=== PATIENT | male | born 1990 | race Two or more races ===

== ENCOUNTER 2020-11-04 11:26 | Inpatient (IN) | payer MEDICAID ==
[~2020-11-04] VITALS: Ht 157.5 cm; Wt 77.2 kg
[2020-11-04] MEDS ORDERED: PANTOPRAZOLE 40 MG/10 ML VIAL INJ IV STA (11:31)
[2020-11-04] MEDS ORDERED: LORazepam 2MG/ML-1ML VIAL IV ONE (11:45)
[2020-11-04] MEDS ORDERED: PROCHLORPERAZINE EDISYLATE 5 MG/ML 2ML VIAL IV ONE (11:45)
[2020-11-04] MEDS ORDERED: SODIUM CHLORIDE 0.9% 1,000 ML IVB ONE (11:45)
[2020-11-04 11:55] LABS: Nucleated Red Blood Cells % 0.1 %
[2020-11-04 11:56] LABS: Basophils # (auto) 0 10 ^3/uL (0-0.2); Eosinophils # (auto) 0 10 ^3/uL (0-0.8); Hemoglobin 9.6 g/dL (13.5-17.5); Lymphocytes # (auto) 1.2 10 ^3/uL (0.4-5.4); Monocytes # (auto) 0.6 10 ^3/uL (0-1.3); Neutrophils # (auto) 3.8 10 ^3/uL (1.6-8.6)
[2020-11-04 11:59] LABS: Basophils % (auto) 0.6 % (0.0-2.0); Eosinophils % (auto) 0.3 % (0.0-7.0); Hematocrit 26.8 % (41.0-53.0); Lymphocytes % (auto) 21.9 % (10.0-50.0); Mean Corpuscular Hemoglobin 34.8 pg (28.0-32.0); Mean Corpuscular Hgb Conc. 35.7 g/dL (32.0-36.0); Mean Corpuscular Volume 97.5 fL (80.0-100.0); Monocytes % (auto) 10.7 % (0.0-12.0); Neutrophils % (auto) 66.5 % (37.0-80.0); Red Blood Cells 2.75 10^6/uL (4.5-5.90); Red Cell Distribution Width 12.4 % (11.8-14.3); White Blood Cell 5.7 10^3/uL (4.4-10.8)
[2020-11-04 12:13] LABS: Albumin 3.7 g/dL (3.4-5.0); Calcium 9.2 mg/dL (8.5-10.1)
[2020-11-04 12:16] LABS: BUN/Creatinine Ratio 16.3; Bilirubin, Total 1.7 mg/dL (0.2-1.0); Total Protein 7.6 g/dL (6.4-8.2)
[2020-11-04 12:41] LABS: Potassium 2.8 mmol/L (3.5-5.1)
[2020-11-04] MEDS ORDERED: POTASSIUM CHL 20MEQ/100ML 100 ML IV ONE (13:00)
[2020-11-04] MEDS ORDERED: PANTOPRAZOLE 40 MG/10 ML VIAL INJ IV ONE (13:30)
[2020-11-04] MEDS ORDERED: SODIUM CHLORIDE 0.9% 1,000 ML IV ONE (13:30)
[2020-11-04] MEDS ORDERED: NITROGLYCERIN 0.4 MG SL TAB SL PRN ×2 (13:30→14:45)
[2020-11-04] MEDS ORDERED: MORPHINE SULFATE INJECTION 2 MG/ML SYRG IV PRN ×3 (13:30→14:45)
[2020-11-04] MEDS: SODIUM CHLORIDE 0.9% 1,000 ML IV SCH (14:45)
[2020-11-04] MEDS ORDERED: ALUM & MAG HYDROX-SIMETH LIQ(MAALOX) 30 ML PO PRN (14:45)
[2020-11-04] MEDS ORDERED: metroNIDAZOLE 500MG/100ML 100 ML IV ONE (14:45)
[2020-11-04] MEDS ORDERED: HYDROcodone-ACET 5/325MG TAB PO PRN (14:45)
[2020-11-04] MEDS ORDERED: ACETAMINOPHEN 325 MG TAB PO PRN (14:45)
[2020-11-04] MEDS ORDERED: SUCRALFATE 1 GM TAB PO ONE (14:45)
[2020-11-04] MEDS ORDERED: ONDANSETRON HCL 4 MG/2 ML VIAL IV PRN (14:45)
[2020-11-04] MEDS ORDERED: cefTRIAXone 1GM/50ML D5W 50 ML IV ONE (14:45)
[2020-11-04] MEDS ORDERED: LORazepam 2MG/ML-1ML VIAL IV PRN (14:45)
[2020-11-04] MEDS ORDERED: LORazepam 0.5 MG TAB PO PRN (14:45)
[2020-11-04] MEDS ORDERED: DEXTROSE (50%) 50ML SYRG IV PRN (15:45)
[2020-11-04 15:46] LABS: Cholesterol 179 mg/dL (< 200)
[2020-11-04 15:50] LABS: HDL Cholesterol 35 mg/dL (40-59); LDL Cholesterol 127 mg/dL (< 100); Triglycerides 197 mg/dL (< 150)
[2020-11-04] MEDS: SUCRALFATE 1 GM TAB PO SCH ×2 (16:54→22:03)
[2020-11-04] MEDS: ACCU-CHEK COMFORT CURVE STRIP VI SCH ×2 (16:54→21:58)
[2020-11-04] MEDS: InsuLIN REG 1unit/0.01ml Soln (100units/ml) SC SCH ×2 (16:55→21:58)
[2020-11-04] MEDS: SOD CHL 0.9%/ KCL 40MEQ 1,000 ML IV SCH (17:07)
[2020-11-04 19:30] LABS: Urine Bacteria NONE SEEN /hpf (None Seen); Urine Blood Negative /uL (Negative); Urine Specific Gravity 1.013 (1.001-1.035); Urine WBC 1 /hpf (0 - 3)
[2020-11-04 19:49] LABS: Alcohol, Urine < 3.0 mg/dL (0-10); Amphetamine Screen, Urine NEGATIVE (NEGATIVE); Barbiturate Scree,Urine NEGATIVE (NEGATIVE); Benzodiazephine Screen, Urine NEGATIVE (NEGATIVE); Cannabinoid Screen, Urine NEGATIVE (NEGATIVE); Cocaine Screen, Urine NEGATIVE (NEGATIVE); Opiate Scree,Urine NEGATIVE (NEGATIVE); Phencyclidine Screen, Urine NEGATIVE (NEGATIVE)
[2020-11-04] MEDS: PANTOPRAZOLE 40 MG/10 ML VIAL INJ IV SCH (22:03)
[2020-11-04] MEDS: metroNIDAZOLE 500MG/100ML 100 ML IV SCH (22:03)
[2020-11-05] MEDS: SOD CHL 0.9%/ KCL 40MEQ 1,000 ML IV SCH ×4 (00:14→22:50)
[2020-11-05] MEDS: metroNIDAZOLE 500MG/100ML 100 ML IV SCH ×3 (06:30→21:11)
[2020-11-05] MEDS: ACCU-CHEK COMFORT CURVE STRIP VI SCH ×2 (06:54→11:30)
[2020-11-05] MEDS: InsuLIN REG 1unit/0.01ml Soln (100units/ml) SC SCH ×2 (06:54→11:30)
[2020-11-05] MEDS: SUCRALFATE 1 GM TAB PO SCH ×4 (06:54→21:04)
[2020-11-05] MEDS: SODIUM CHLORIDE 0.9% 1,000 ML IV SCH (07:25)
[2020-11-05] MEDS ORDERED: INFLUENZA QUAD 2020-2021 0.5 ML SYRG IM ONE (08:00)
[2020-11-05 08:41] VITALS: BP 125/85
[2020-11-05 09:07] LABS: Albumin 2.9 g/dL (3.4-5.0); Calcium 7.9 mg/dL (8.5-10.1); INR 1.11 (0.9-1.15); Potassium 3.4 mmol/L (3.5-5.1)
[2020-11-05 09:11] LABS: BUN/Creatinine Ratio 11.8; Bilirubin, Total 0.9 mg/dL (0.2-1.0); Total Protein 5.9 g/dL (6.4-8.2)
[2020-11-05] MEDS: PANTOPRAZOLE 40 MG/10 ML VIAL INJ IV SCH (09:31)
[2020-11-05] MEDS: cefTRIAXone 1GM/50ML D5W 50 ML IV SCH (09:31)
[2020-11-05] MEDS ORDERED: POLYETHYLENE GLYCOL 17 GM PWDR PO ONE (12:45)
[2020-11-05] MEDS ORDERED: POTASSIUM CHL 20 Meq TABLET PO ONE (12:45)
[2020-11-05] MEDS ORDERED: FOLIC ACID 1 MG, MAGNESIUM SULF SDV 50% 8 MEQ, THIAMINE INJ 100 MG in SODIUM CHLORIDE 0... INJ SCH (12:45)
[2020-11-05 12:57] LABS: Basophils # (auto) 0 10 ^3/uL (0-0.2); Eosinophils # (auto) 0 10 ^3/uL (0-0.8); Eosinophils % (auto) 0.8 % (0.0-7.0); Hematocrit 21.1 % (41.0-53.0); Hemoglobin 7.3 g/dL (13.5-17.5); Lymphocytes # (auto) 0.9 10 ^3/uL (0.4-5.4); Monocytes # (auto) 0.4 10 ^3/uL (0-1.3); Monocytes % (auto) 10.5 % (0.0-12.0); Neutrophils # (auto) 2.3 10 ^3/uL (1.6-8.6); Neutrophils % (auto) 62.8 % (37.0-80.0)
[2020-11-05 12:59] LABS: Lymphocytes % (auto) 24.9 % (10.0-50.0); Mean Corpuscular Hemoglobin 34.9 pg (28.0-32.0); Mean Corpuscular Hgb Conc. 34.6 g/dL (32.0-36.0); Mean Corpuscular Volume 101.1 fL (80.0-100.0); Nucleated Red Blood Cells % 0.1 %; Red Blood Cells 2.09 10^6/uL (4.5-5.90); Red Cell Distribution Width 12.4 % (11.8-14.3); White Blood Cell 3.6 10^3/uL (4.4-10.8)
[2020-11-05 13:00] VITALS: BP 123/79
[2020-11-05] MEDS ORDERED: FOLIC ACID 1 MG TAB PO ONE (13:45)
[2020-11-05] MEDS ORDERED: MULTIPLE VITAMIN TAB PO ONE (13:45)
[2020-11-05] MEDS ORDERED: THIAMINE HCL 100 MG TAB PO ONE (13:45)
[2020-11-05 16:48] VITALS: BP 136/87
[2020-11-05] MEDS: PANTOPRAZOLE 40 MG TAB PO SCH (21:04)
[2020-11-05 22:00] VITALS: BP 126/76
[2020-11-06 05:00] VITALS: BP 135/73
[2020-11-06] MEDS: metroNIDAZOLE 500MG/100ML 100 ML IV SCH ×2 (05:25→14:00)
[2020-11-06] MEDS: SUCRALFATE 1 GM TAB PO SCH ×2 (06:31→11:30)
[2020-11-06] MEDS: SOD CHL 0.9%/ KCL 40MEQ 1,000 ML IV SCH (06:51)
[2020-11-06 07:17] LABS: Basophils # (auto) 0.1 10 ^3/uL (0-0.2); Basophils % (auto) 1.3 % (0.0-2.0); Eosinophils # (auto) 0.1 10 ^3/uL (0-0.8); Lymphocytes # (auto) 1.6 10 ^3/uL (0.4-5.4)
[2020-11-06 07:21] LABS: Eosinophils % (auto) 1.5 % (0.0-7.0); Hematocrit 23.3 % (41.0-53.0); Hemoglobin 8.2 g/dL (13.5-17.5); Lymphocytes % (auto) 33.5 % (10.0-50.0); Mean Corpuscular Hemoglobin 35.6 pg (28.0-32.0); Mean Corpuscular Hgb Conc. 35.3 g/dL (32.0-36.0); Mean Corpuscular Volume 100.8 fL (80.0-100.0); Monocytes # (auto) 0.5 10 ^3/uL (0-1.3); Monocytes % (auto) 11.2 % (0.0-12.0); Neutrophils # (auto) 2.6 10 ^3/uL (1.6-8.6); Neutrophils % (auto) 52.5 % (37.0-80.0); Nucleated Red Blood Cells % 0.2 %; Red Blood Cells 2.31 10^6/uL (4.5-5.90); Red Cell Distribution Width 12.5 % (11.8-14.3); White Blood Cell 4.9 10^3/uL (4.4-10.8)
[2020-11-06 07:26] LABS: Albumin 3.3 g/dL (3.4-5.0); BUN/Creatinine Ratio 6.6; Calcium 8.8 mg/dL (8.5-10.1); Magnesium 2.1 mg/dL (1.6-2.6); Potassium 3.9 mmol/L (3.5-5.1)
[2020-11-06 07:29] LABS: Bilirubin, Total 0.7 mg/dL (0.2-1.0); Total Protein 6.7 g/dL (6.4-8.2)
[2020-11-06 09:31] LABS: % Iron Saturation 19.2 % (20-55)
[2020-11-06] MEDS ORDERED: THIAMINE HCL 100 MG TAB PO SCH ×2 (10:00)
[2020-11-06] MEDS ORDERED: FOLIC ACID 1 MG TAB PO SCH (10:00)
[2020-11-06] MEDS ORDERED: MULTIPLE VITAMIN TAB PO SCH (10:00)
[2020-11-06] MEDS: cefTRIAXone 1GM/50ML D5W 50 ML IV SCH (10:22)
[2020-11-06] MEDS: PANTOPRAZOLE 40 MG TAB PO SCH (10:23)
[2020-11-06 13:27] VITALS: BP 133/89
[2020-11-07 11:17] LABS: Hepatitis B Surface Antibody Negative
[2020-11-07 11:19] LABS: Folate (Folic Acid) 15.27 ng/mL (5.38-24)
[2020-11-07 11:44] LABS: Hepatitis A Total Antibody Positive
[2020-11-07 13:11] LABS: Hepatitis B Core Total AB Negative; Hepatitis B Surface Antigen Negative (Negative); Hepatitis C Antibody Negative (Negative)
== END 2020-11-06 15:00 | disposition home or self-care (01) | DRG 241 ==
LOC: ER 11:26 → TELE 11:27 → TELE-WESTW 11-05 06:14
PROVIDERS: ADMIT Hospitalist; ATTEND Hospitalist
DX: K29.21 Alcoholic gastritis with bleeding (principal); B17.9 Acute viral hepatitis, unspecified; E11.9 Type 2 diabetes mellitus without complications; K52.9 Noninfective gastroenteritis and colitis, unspecified; Z20.822 Contact with and (suspected) exposure to COVID-19; E66.9 Obesity, unspecified; E78.5 Hyperlipidemia, unspecified; E87.1 Hypo-osmolality and hyponatremia; F10.10 Alcohol abuse, uncomplicated; S05.90XA Unspecified injury of unspecified eye and orbit, initial encounter; X58.XXXA Exposure to other specified factors, initial encounter; D64.9 Anemia, unspecified; Y90.9 Presence of alcohol in blood, level not specified; F12.90 Cannabis use, unspecified, uncomplicated; Z83.3 Family history of diabetes mellitus; Y93.89 Activity, other specified; Y92.89 Other specified places as the place of occurrence of the external cause; Y99.8 Other external cause status; Z79.899 Other long term (current) drug therapy; Z68.31 Body mass index [BMI] 31.0-31.9, adult; Z28.21 Immunization not carried out because of patient refusal; D62 Acute posthemorrhagic anemia
CPT/HCPCS: 36415; 74176; 80053; 80061; 80307; 81001; 82150; 82270; 82607; 82728; 82746; 82962; 83036; 83540; 83550; 83615; 83690; 83735; 84484; 85025; 85045; 85610; 86704; 86706; 86708; 86803; 87040; 87086; 87340; 87426; 93005; 96361; 96374; 96375; C9113; G0378; J0696; J3480; J3490

== ENCOUNTER 2022-02-22 16:56 | Emergency (ER) | payer MEDICAID ==
[~2022-02-22] VITALS: Ht 157.5 cm; Wt 72.6 kg
[2022-02-22] MEDS ORDERED: FLUORESCEIN SOD OPTH TEST STRIP EACHEYE ONE (18:30)
[2022-02-22] MEDS ORDERED: TETRACAINE HCL 0.5% OPTH(EYE) SOLN 4ML EACHEYE ONE (18:30)
[2022-02-22] MEDS ORDERED: CIP03OS EACHEYE (19:47)
[2022-02-22 20:14] VITALS: BP 145/98
== END 2022-02-22 21:01 | disposition home or self-care (01) ==
LOC: ER 16:56
DX: S05.02XA Injury of conjunctiva and corneal abrasion without foreign body, left eye, initial encounter (principal); S05.01XA Injury of conjunctiva and corneal abrasion without foreign body, right eye, initial encounter; E11.9 Type 2 diabetes mellitus without complications; X58.XXXA Exposure to other specified factors, initial encounter; Y93.89 Activity, other specified; Y92.89 Other specified places as the place of occurrence of the external cause; Y99.8 Other external cause status

== ENCOUNTER 2022-05-06 08:57 | Emergency (ER) | payer MEDICAID ==
[~2022-05-06] VITALS: Ht 160 cm; Wt 72.7 kg
[~2022-05-06 08:57] MED LIST: CIP03OS EACHEYE
[2022-05-06] MEDS ORDERED: ACETAMINOPHEN 500 MG TAB PO ONE (09:30)
[2022-05-06] MEDS ORDERED: IBUP800T26 PO (12:04)
[2022-05-06] MEDS ORDERED: CYCL-837 PO (12:04)
[2022-05-06 12:05] VITALS: BP 165/99
== END 2022-05-06 12:19 | disposition home or self-care (01) ==
LOC: ER 08:57
DX: S43.421A Sprain of right rotator cuff capsule, initial encounter (principal); E11.9 Type 2 diabetes mellitus without complications; Z79.2 Long term (current) use of antibiotics; X50.1XXA Overexertion from prolonged static or awkward postures, initial encounter; Y93.89 Activity, other specified; Y92.89 Other specified places as the place of occurrence of the external cause; Y99.8 Other external cause status
CPT/HCPCS: 29105; 73030

== ENCOUNTER 2023-05-19 20:36 | Emergency (ER) | payer MEDICAID ==
[~2023-05-19] VITALS: Ht 167.6 cm; Wt 73.0 kg
[2023-05-19 20:36] VITALS: BP 151/95; PULSE 102; RESP 18; O2SAT 95
[~2023-05-19 20:36] MED LIST changes: +CYCL-837 PO; +IBUP-1455 PO
[2023-05-19 21:37] LABS: Urine Bacteria FEW /hpf (None Seen); Urine Blood Negative /uL (Negative); Urine Clarity Clear (Clear); Urine Color Yellow (Yellow); Urine Hyaline Cast FEW /lpf (0 - 2); Urine Mucus FEW (None Seen); Urine Protein, UAD 3+ (Negative); Urine Specific Gravity 1.014 (1.001-1.035); Urine Urobilinogen Normal (Negative); Urine WBC 2 /hpf (0 - 3); Urine pH 6.5 (5.0-8.0)
[2023-05-19 23:16] LABS: Basophils # (auto) 0.1 10 ^3/uL (0-0.2); Basophils % (auto) 1.2 % (0.0-2.0); Eosinophils # (auto) 0.1 10 ^3/uL (0-0.8); Eosinophils % (auto) 1.1 % (0.0-7.0); Hematocrit 34.8 % (41.0-53.0); Hemoglobin 11.6 g/dL (13.5-17.5); Lymphocytes # (auto) 1.9 10 ^3/uL (0.4-5.4); Lymphocytes % (auto) 22.3 % (10.0-50.0); Mean Corpuscular Hemoglobin 31.3 pg (28.0-32.0); Mean Corpuscular Hgb Conc. 33.4 g/dL (32.0-36.0); Mean Corpuscular Volume 93.7 fL (80.0-100.0); Monocytes % (auto) 12.2 % (0.0-12.0); Neutrophils # (auto) 5.3 10 ^3/uL (1.6-8.6); Neutrophils % (auto) 63.2 % (37.0-80.0); Nucleated Red Blood Cells % 0.1 %; Red Blood Cells 3.71 10^6/uL (4.5-5.90); Red Cell Distribution Width 14.9 % (11.8-14.3); White Blood Cell 8.4 10^3/uL (4.4-10.8)
[2023-05-19 23:25] LABS: INR 1.11 (0.9-1.15); Partial Thromboplastin Time 31.1 SEC (24.5-34.5); Prothrombin Time 11.6 sec (9.3-11.8)
[2023-05-19 23:34] LABS: Alanine Aminotransferase 61 U/L (7-40); Albumin 4.4 g/dL (3.2-4.8); Alkaline Phosphatase 158 U/L (46-116); Anion Gap 13.2 (5-15); Aspartate Aminotransferase 255 U/L (13-40); BUN/Creatinine Ratio 7.9 (10.0-20.0); Bilirubin, Total 1.3 mg/dL (0.2-1.0); Blood Urea Nitrogen 5 mg/dL (9-23); Calcium 9.1 mg/dL (8.5-10.1); Carbon Dioxide 21.8 mmol/L (20-30); Chloride 104 mmol/L (98-107); Glucose 105 mg/dL (74-106); Potassium 3.6 mmol/L (3.5-5.1); Sodium 139 mmol/L (136-145); Total Protein 8.7 g/dL (5.7-8.2)
== END 2023-05-19 22:46 | disposition left against medical advice (07) ==
LOC: ER 20:37
DX: R06.02 Shortness of breath (principal); R07.89 Other chest pain; Z53.21 Procedure and treatment not carried out due to patient leaving prior to being seen by health care provider
CPT/HCPCS: 36415; 71045; 80053; 81001; 83735; 83880; 84484; 85025; 85610; 85730

== ENCOUNTER 2024-04-18 13:35 | Emergency (ER) | payer MEDICAID ==
[~2024-04-18] VITALS: Ht 157.5 cm; Wt 72.0 kg
[2024-04-18 14:15] VITALS: BP 118/73; PULSE 111; RESP 18; TEMP 98.8; O2SAT 95
== END 2024-04-18 15:35 | disposition left against medical advice (07) ==
LOC: ER 13:35
DX: S61.511A Laceration without foreign body of right wrist, initial encounter (principal); Z53.21 Procedure and treatment not carried out due to patient leaving prior to being seen by health care provider; W45.8XXA Other foreign body or object entering through skin, initial encounter; Y93.89 Activity, other specified; Y92.89 Other specified places as the place of occurrence of the external cause; Y99.8 Other external cause status

== ENCOUNTER 2024-09-15 02:43 | Emergency (ER) | payer MEDICAID ==
[~2024-09-15] VITALS: Ht 157.5 cm; Wt 71.7 kg
[2024-09-15 02:55] VITALS: BP 161/107; PULSE 124; RESP 18; O2SAT 97
== END 2024-09-15 04:23 | disposition left against medical advice (07) ==
LOC: ER 02:43
DX: R10.9 Unspecified abdominal pain (principal); Z53.21 Procedure and treatment not carried out due to patient leaving prior to being seen by health care provider

== ENCOUNTER 2025-06-21 10:12 | Inpatient (IN) | payer MEDICAID ==
[2025-06-21] VITALS (9 sets, daily range): BP systolic 118–133; BP diastolic 55–84; PULSE 81–124; RESP 15–19; TEMP 98.7–99.3; O2SAT 97–98
[~2025-06-21] VITALS: Ht 157.5 cm; Wt 77.4 kg
[2025-06-21] MEDS: PANTOPRAZOLE 40mg/50ML NS AE 50 ML IV ONE ×2 (10:45→12:43)
[2025-06-21] MEDS: SODIUM CHLORIDE 0.9% 500 ML IV ONE (10:45)
--- NOTE | 2025-06-21 10:45 | ED.PDOC ---
GI ASSESSMENT HPI Comments 35 year old male PMHx liver disease, HTN, DM, anemia, presents to the ED with a chief complaint of hematemesis onset last night around 22:00. Patient states he began experiencing hematemesis last night as well as low back pain, this morning hematemesis worsened, is also experiencing weakness, lightheadedness, states he experienced a few syncopal episodes. Patient had a beer this morning, states he experienced similar episode in 2019, not as severe. Denies fever, chills, chest pain, shortness of breath, dysuria, hematuria, melena, blood in stool. No other symptoms or modifying factors present at this time. Chief Complaint: GI Bleed Time Seen by MD: 10:40 Primary Care Provider: QUIQUE PMD Reviewed Notes: Medications, Allergies Allergies: Coded Allergies: No Known Drug Allergy (Verified Allergy, Unknown, 11/04/20) Home Meds Active Scripts Ibuprofen Micronized (Ibuprofen) 800 Mg Tab, 800 MG PO TID PRN, #60 TAB Prov:COTY JAQUEZ CRAYON PAINTER 05/06/22 Cyclobenzaprine Hcl (Cyclobenzaprine Hcl) 5 Mg Tab, 1 TAB PO TID PRN, #30 TAB Prov:COTY JAQUEZ CRAYON PAINTER 05/06/22 Ciprofloxacin Hcl (Ophth) (Cipro Opthalmic Soln) [address], 1 DROP EACHEYE QID for 7 Days, #10 ML Prov:DILIA MUSTAFA DO 02/22/22 Information Source: Patient, Spouse Mode of Arrival: Wheelchair Timing: Hours Duration: Since onset Prehospital treatment: None Vomitus: Bloody Severity: Moderate Recent: Ingestion of ETOH Recent Hx of: None Pain Location: None Modifying Factors: Nothing Associated sign and symptoms: Nausea, Vomiting, Hematemesis Past Medical History PAST MEDICAL HISTORY: Anemia, DM, HTN, Liver Surgical History: Denies all surgeries Family History Family History: Family hx of DM, Family hx of HTN Social History Smoker: Cigarettes Alcohol: Heavy Drugs: Marijuana Lives In: Home Constitutional: reports: weakness; denies: chills, diaphoresis, fatigue, fever, malaise, sweats, others EENTM: denies: blurred vision, double vision, ear bleeding, ear discharge, ear drainage, ear pain, ear ringing, eye pain, eye redness, hearing loss, mouth pain, mouth swelling, nasal discharge, nose bleeding, nose congestion, nose pain, photophobia, tearing, throat pain, throat swelling, voice changes, others Respiratory: denies: cough, hemoptysis, orthopnea, SOB at rest, shortness of breath, SOB with excertion, stridor, wheezing, others Cardiovascular: denies: chest pain, dizzy spells, diaphoresis, Dyspnea on exertion, edema, irregular heart beat, left arm pain, lightheadedness, palpitations, PND, syncope, others Gastrointestinal: reports: hematemesis, nausea, vomiting; denies: abdomen dis tended, abdominal pain, blood streaked bowels, constipated, diarrhea, dysphagia, difficulty swallowing, melena, poor appetite, poor fluid intake, rectal bleeding, rectal pain, others Genitourinary: denies: burning, dysuria, flank pain, frequency, hematuria, incontinence, penile discharge, penile sore, pain, testicle pain, testicle swelling, urgency, others Neurological: reports: dizziness, fainting, weakness; denies: headache, left sided numbness, left sided weakness, numbness, paresthesia, pre-existing deficit, right sided numbness, right sided weakness, seizure, speech problems, tingling, tremors, others Musculoskeletal: reports: back pain; denies: gout, joint pain, joint swelling, muscle pain, muscle stiffness, neck pain, others Integumetry: denies: bruises, change in color, change in hair/nails, dryness, laceration, lesions, lumps, rash, wounds, others Allergic/Immunocompromised: denies: Difficulty Healing, Frequent Infections, Hives, Itching, others Hematologic/Lymphatic: denies: anemia, blood clots, easy bleeding, easy bruising, swollen glands, others Endocrine: denies: excessive hunger, excessive sweating, excessive thirst, excessive urination, flushing, intolerance to cold, intolerance to heat, unexplained weight gain, unexplained weight loss, others Psychiatric: denies: anxiety, bipolar disorder, depression, hopeless, panic disorder, schizophrenia, sleepless, suicidal, others All Other Systems: Reviewed and Negative Physical Exam General Appearance: Moderate Distress HEENT: Pale Conjuntivae (L), Pale Conjuntivae (R), Pharynx Normal, TMs Normal Neck: Full Range of Motion, Non-Tender, Normal, Normal Inspection Respiratory: Chest Non-Tender, Lungs Clear, No Accessory Muscle Use, No Respiratory Distress, Normal Breath Sounds Cardiovascular: No Edema, No JVD, No Murmur, No Gallop, Normal Peripheral Pulses, Regular Rate/Rhythm Breast Exam: Deferred Gastrointestinal: Diffuse, No Organomegaly, No Pulsatile Mass, Normal Bowel Sounds, Soft, Tenderness Genitalia: Deferred Pelvic: Deferred Rectal: Deferred Extremities: No calf tenderness, Normal capillary refill, Normal inspection, Normal range of motion, Non-tender, No pedal edema Musculoskeletal : Apperance: Normal Neurologic: Alert, stage rigger II-XII nml as Tested, Motor Weakness, Normal Affect, Normal Mood, No Sensory Deficits Cerebellar Function: Normal Reflexes: Normal Skin: Dry, Normal Color, Warm Lymphatic: No Adenopathy Was a procedure done? Was a procedure done?: No GI differential Dx Differential Diagnosis: Diverticular disease, Gastritis/PUD, Gastroenteritis, Pancreatitis, UTI, Electrolyte Imbalance, Food Poisoning X-Ray, Labs, Meds, VS Vital Signs Date Time Temp Pulse Resp B/P (MAP) Pulse Ox O2 Delivery O2 Flow Rate FiO2 06/21/25 12:13 135 20 111/79 (90) 100 06/21/25 10:20 98.4 129 18 124/73 99 98.4 Lab Test 06/21/25 11:15 Range/Units White Blood Count 6.4 4.4-10.8 10^3/uL Red Blood Count 2.25 L 4.5-5.90 10^6/uL Hemoglobin 6.8 *L 13.5-17.5 g/dL Hematocrit 20.7 L 41.0-53.0 % Mean Corpuscular Volume 91.9 80.0-100.0 fL Mean Corpuscular Hemoglobin 30.1 28.0-32.0 pg Mean Corpuscular Hemoglobin Concent 32.7 32.0-36.0 g/dL Red Cell Distribution Width 16.9 H 11.8-14.3 % Platelet Count 137 L 140-450 10^3/uL Mean Platelet Volume 9.6 6.9-10.8 fL Neutrophils (%) (Auto) 83.4 H 37.0-80.0 % Lymphocytes (%) (Auto) 10.6 10.0-50.0 % Monocytes (%) (Auto) 5.7 0.0-12.0 % Eosinophils (%) (Auto) 0.0 0.0-7.0 % Basophils (%) (Auto) 0.3 0.0-2.0 % Neutrophils # (Auto) 5.4 1.6-8.6 10 ^3/uL Lymphocytes # (Auto) 0.7 0.4-5.4 10 ^3/uL Monocytes # (Auto) 0.4 0-1.3 10 ^3/uL Eosinophils # (Auto) 0 0-0.8 10 ^3/uL Basophils # (Auto) 0 0-0.2 10 ^3/uL Nucleated Red Blood Cells 0.0 % Prothrombin Time 14.9 H 9.3-11.8 sec Prothrombin Time INR 1.46 H 0.9-1.15 Activated Partial Thromboplast Time 26.8 24.5-34.5 SEC Sodium Level 139 136-145 mmol/L Potassium Level 3.4 L 3.5-5.1 mmol/L Chloride Level 98 98-107 mmol/L Carbon Dioxide Level 22 20-31 mmol/L Anion Gap 19 H 5-15 Blood Urea Nitrogen 18 9-23 mg/dL Creatinine 0.59 L 0.700-1.30 mg/dL Glomerular Filtration Rate Calc 128 >90 mL/min BUN/Creatinine Ratio 30.5 H 10.0-20.0 Serum Glucose 174 H 74-106 mg/dL Calcium Level 8.0 L 8.7-10.4 mg/dL Total Bilirubin 2.1 H 0.2-1.0 mg/dL Aspartate Amino Transferase (AST) 118 H 13-40 U/L Alanine Aminotransferase (ALT) 49 H 7-40 U/L Alkaline Phosphatase 128 H 46-116 U/L Total Protein 6.2 5.7-8.2 g/dL Albumin 3.1 L 3.2-4.8 g/dL Plasma/Serum Blood Alcohol 8.3 <10 mg/dL Current Medications Medications (Trade) Dose Ordered Sig/Lidia Route Start Time Stop Time Status Last Admin Sodium Chloride 500 ml @ 500 mls/hr Q1H ONCE IV 06/21/25 10:45 06/21/25 11:44 DC 06/21/25 10:45 Pantoprazole Sodium 50 ml @ 10 mls/hr Q5H ONCE IV 06/21/25 10:45 06/21/25 15:44 06/21/25 10:45 PROCEDURE(s): ABPL - CT AB PEL WO CON-NO ORAL OR IV IMPRESSION: Limited evaluation without contrast. Cirrhotic morphology liver with extensive hypodense lesions throughout the hepatic parenchyma replacing more than 50% of the hepatic parenchyma. This could be secondary to malignancy /metastatic disease. Recommend oncology consultation and multiphasic MRI abdomen with and without contrast. Gastroesophageal varices. Wall thickening of the ascending and transverse colon which can be secondary to portal hypertension, colitis, inflammatory bowel disease. Gallbladder wall thickening and hyperdensity, possibly sludge. Recommend abdominal ultrasound to further characterize and HIDA scan to exclude cholecystitis. Other findings as described. Hep-Lock was established Patient was given normal saline at a 500 cc bolus. Because of the active bleeding, the patient was started on a Protonix drip. The CBC shows a hemoglobin of 6.8 hematocrit of 20.7 The chemistry panel is within normal limits The INR is 1.46 At this time, the patient will be admitted to the hospitalist The patient is being transfused with at least 2 units of packed red blood cells. We are discussing the fact that the patient may have signs of malignancy which could be metastatic. Images Reviewed?: Images reviewed and evaluated by me Time of 1ST Reevaluation: 11:10 Reevaluation 1ST: Unchanged Patient Education/Counseling: Diagnosis, Treatment, Prognosis Family Education/Counseling: Diagnosis, Treatment, Prognosis SEPSIS Sepsis Screen Date sepsis recognized/suspect: Jun 21, 2025 Time Sepsis recognized/suspect: 1023 Recent Procedure: No On Antibiotic Therapy: No Respiratory Rate >20: No Heart Rate >90: Yes Temp<36 C (96.8 F) or >38.3 C: No SBP <90 or MAP <65 mmHG: No New Acute Mental Status Change: No Is the patient on CPAP, BIPAP,: No Physician Orders Urinalysis (06/21/25 10:40) Heplock Iv (06/21/25 10:40) Lacquer Maker (06/21/25 10:40) Blood Pressure (06/21/25 10:40) Pulse Oximetry (06/21/25 10:40) Electrocardigram (06/21/25 10:40) Type And Screen (06/21/25 10:40) Pantoprazole 40mg/50ml Ns Ae (Protonix) (06/21/25 10:45) Ct Ab Pel Wo Con-No Oral Or Iv (06/21/25 10:40) Obtain Consent For: (06/21/25 12:34) Administer Blood Products UD (06/21/25 12:34) Pantoprazole (Protonix) (06/21/25 22:00) * Gi Dvh Leisure Studies Professor (06/21/25 13:21) Glucose Blood (Accu-Chek Comfort Curve T (06/21/25 16:00) Insulin R (Human) (Insulin R) (06/21/25 16:00) Dextrose 50% Syringe (06/21/25 13:30) Allergies (06/21/25 13:) Code Status (06/21/25:) Sodium Chloride 0.9% (06/21/25 13:30) Oxygen Per Hour (06/21/25 13:21) Hydrocodone-Acet 5/325mg Tab ([place] 5/32 (06/21/25 13:30) Ondansetron Hcl (Zofran) (06/21/25 13:30) Docusate Sodium Capsule (Colace Capsule) (06/21/25 13:30) Complete Blood Count (06/22/25 04:00) Comprehensive Metabolic Panel (06/22/25 04:00) Condition: Serious (06/21/25 13:) Acetaminophen Tablet (Tylenol Tablet) (06/21/25 13:30) Bedrest With Bathroom Privileg (06/21/25 13:) Maintain Bed Rest (06/21/25 13:) Sequential Compression Device (06/21/25 ) Consistent Carb(Ccho)Diabetes (06/21/25 Lunch) Admit (06/21/25 14:17) Nitroglycerin Sublingual (Ntrostat Subli (06/21/25 14:30) Morphine Sulfate Injection (06/21/25 14:30) Stat Ekg For Chest Pain (06/21/25 14:17) Notify Of Changes From Base (06/21/25 14:17) Old Coin Dealer For 24 Hours (06/21/25 14:17) Emergency Dysrhythmia Protocol (06/21/25 14:17) Rhythm Strips Once Every Shift (06/21/25 14:17) Oxygen By Nasal Cannula (06/21/25 14:17) Vital Signs Date Time Temp Pulse Resp B/P (MAP) Pulse Ox O2 Delivery O2 Flow Rate FiO2 06/21/25 12:13 135 20 111/79 (90) 100 06/21/25 10:20 98.4 129 18 124/73 99 98.4 Laboratory Tests Test 06/21/25 11:15 White Blood Count 6.4 10^3/uL (4.4-10.8) Medications Medications Dose Ordered Sig/Lidia Route Start Time Stop Time Status Last Admin Dose Admin Pantoprazole Sodium 50 ml @ 10 mls/hr Q5H ONCE IV 06/21/25 10:45 06/21/25 15:44 06/21/25 10:45 Sodium Chloride 500 ml @ 500 mls/hr Q1H ONCE IV 06/21/25 10:45 06/21/25 11:44 DC 06/21/25 10:45 Departure 1 Departure Time of Disposition: 14:22 Impression: Primary Impression: Upper GI bleed Additional Impressions: Acute abdominal pain Severe anemia Disposition: ADMITTED INPATIENT Admit to: [facility] Condition: Fair Critical Care Note Critical Care Time?: No Stability Stability form required: No Heart Score Heart Score: Heart Score Response (Comments) Value History N/A 0 EKG N/A 0 Age N/A 0 Risk Factors N/A 0 Troponin N/A 0 Total 0 I personally scribed for CRESENCIO POTTER MD ([email or web address]) on 06/21/25 at 10:44. Electronically submitted by Lola Duran ([email or web address]). I personally scribed for CRESENCIO POTTER MD ([email or web address]) on 06/21/25 at 12:14. Electronically submitted by Lola Duran [email or web address]). CRESENCIO POTTER MD Jun 21, 2025 10:44
[2025-06-21 11:33] LABS: Nucleated Red Blood Cells % 0.0 %
[2025-06-21 11:35] LABS: Hematocrit 20.7 % (41.0-53.0); Mean Corpuscular Hemoglobin 30.1 pg (28.0-32.0); Mean Corpuscular Volume 91.9 fL (80.0-100.0)
[2025-06-21 11:46] LABS: Hemoglobin 6.8 g/dL (13.5-17.5)
[2025-06-21 11:49] LABS: INR 1.46 (0.9-1.15); Partial Thromboplastin Time 26.8 SEC (24.5-34.5); Prothrombin Time 14.9 sec (9.3-11.8)
[2025-06-21 11:50] LABS: Anion Gap 19 (5-15); BUN/Creatinine Ratio 30.5 (10.0-20.0); Blood Urea Nitrogen 18 mg/dL (9-23); Carbon Dioxide 22 mmol/L (20-31); Sodium 139 mmol/L (136-145); Total Protein 6.2 g/dL (5.7-8.2)
[2025-06-21 11:56] LABS: Alanine Aminotransferase 49 U/L (7-40); Albumin 3.1 g/dL (3.2-4.8); Alkaline Phosphatase 128 U/L (46-116); Bilirubin, Total 2.1 mg/dL (0.2-1.0); Calcium 8.0 mg/dL (8.7-10.4); Chloride 98 mmol/L (98-107); Glucose 174 mg/dL (74-106); Potassium 3.4 mmol/L (3.5-5.1)
--- NOTE | 2025-06-21 12:03 | DVH ---
Indication: weakness Technique: CT axial images of the abdomen and pelvis are obtained without contrast. Coronal and sagit luis reformats were obtained. Radiation Dose Information: CTDI volume is 8.1 mGy. Dose-length product is 441 mGy*cm Comparison: CT ABD PELVIS WO CONTRAST on DOS: 11/04/20 FINDINGS: There is limited interpretation of the abdomen and pelvis without administration of intravenous contr ast. Lung bases demonstrate no pleural effusion. Adrenal glands, spleen and pancreas unremarkable in shape. Numerous perisplenic varices. Cirrhotic morphology liver. There are innumerable hypodense lesions throughout the hepatic parenchyma highly suspicious for malignancy /metastatic disease. This replaces more than 50% of the hepatic par enchyma. Gallbladder hyperdensity, gallbladder wall thickening. The kidneys demonstrate no hydronephrosis or nephrolithiasis. Gastroesophageal varices. Gastric distention. Small bowel loops normal in caliber. Recanalized umbil ical vein. Moderate volume stool throughout the colon. Normal appendix. Bowel wall thickening ascending and dong sverse colon. Abdominal aortic atherosclerotic disease. Bladder partially distended. No free pelvic fluid. No ingui nal lymphadenopathy. IMPRESSION: Limited evaluation without contrast. Cirrhotic morphology liver with extensive hypodense lesions throughout the hepatic parenchyma replaci ng more than 50% of the hepatic parenchyma. This could be secondary to malignancy /metastatic disease . Recommend oncology consultation and multiphasic MRI abdomen with and without contrast. Gastroesophageal varices. Wall thickening of the ascending and transverse colon which can be secondary to portal hypertension, colitis, inflammatory bowel disease. Gallbladder wall thickening and hyperdensity, possibly sludge. Recommend abdominal ultrasound to fur ther characterize and HIDA scan to exclude cholecystitis. Other findings as described.
[2025-06-21] MEDS ORDERED: DEXTROSE (50%) 50ML SYRG IV PRN (13:30)
[2025-06-21] MEDS: SODIUM CHLORIDE 0.9% 1,000 ML IV SCH (13:30)
[2025-06-21] MEDS ORDERED: DOCUSATE SOD 100 MG CAP PO PRN (13:30)
[2025-06-21] MEDS ORDERED: HYDROcodone-ACET 5/325MG TAB PO PRN (13:30)
--- NOTE | 2025-06-21 14:19 | DVHHP2 ---
History of Present Illness Reason for Visit: Severe anemia History of Present Illness The patient is a 35 year male with past medical history of anemia, diabetes mellitus, hypertension, and liver disease who presented to [facility] ED with complaint of hematemesis. Patient reports that he has been experiencing hematemesis last night as well as low back pain, lightheadedness, weakness, few syncopal episodes, getting worse this morning that prompted this visit. Patient was seen and evaluated in the ED, laboratory data shows WBC 6.4, hemoglobin 6.8, hematocrit 20.7, platelets 137, sodium 139, potassium 3.4, BUN 18, creatinine 0.59, GFR 128, glucose 174, calcium 8.0, albumin 3.1, total bilirubin 2.1, alkaline phos 128, AST 118, ALT 49, PT 14.9, INR 1.46, APTT 26.8, blood pressure 114/79, heart rate 135, temperature 98.4, O2 saturation 99% on room air. Abdomen/pelvis CT revealing cirrhotic morphology liver with extensive hypodense lesions throughout the hepatic parenchyma replacing more than 50% of the hepatic parenchyma; this could be secondary to malignancy/metastatic d isease; wall thickening of the ascending and transverse colon which can be secondary to portal hypertension, colitis, inflammatory bowel disease, gallbladder wall thickening and hyperdensity, possibly sludge; recommend abdominal ultrasound to further characterize and HIDA scan to exclude cholecystitis. Type and screen 2 units PRBC, please see medication orders section in the computer. On my assessment, patient denied chest pain, no headache, dizziness, diaphoresis, shortness a breath, diarrhea, nausea, vomi ting, fever, chills. Patient was admitted for further evaluation and medical management. Past Medical History Anemia, DM, HTN, Liver disease Past Surgical History Denies all surgeries Family History Reviewed, noncontributory to the management of this case. Past Social History The patient lives at home, smokes cigarettes, drinks alcohol heavily, uses marijuana. Review of Systems Constitutional: Yes: Weakness; No: Fever, Chills, Sweats, Malaise, Other Eyes: No: Pain, Vision change, Conjunctivae inflammation, Eyelid inflammation, Other, Redness ENT: No: Ear pain, Ear discharge, Nose pain, Nose discharge, Nose congestion, Mouth pain, Mouth swelling, Throat pain, Throat swelling, Other Respiratory: No: Cough, Dry, Shortness of breath, SOB with excertion, Wheezing, Hemoptysis, Pleuritic Pain, Sputum, Wheezing, Other Cardiovascular: Other (Syncope); No: Chest Pain, Palpitations, Orthopnea, Paroxysmal Noc. Dyspnea, Edema, Lt Headedness Gastrointestinal: Nausea, Vomiting, Other (Hematemesis); No: Abdominal Pain, Diarrhea, Constipation, Melena, Hematochezia Genitourinary: No Dysuria, No Frequency, No Incontinence, No Hematuria, No Retention, No Other Musculoskeletal: back pain; No: other, neck pain, shoulder pain, arm pain, hand pain, leg pain, foot pain Skin: No: Rash, Lesions, Jaundice, Bruising, Other Neurological: Weakness, Other (Dizziness, fainting.); No: Numbness, Incoord ination, Change in speech, Confusion, Seizures Allergies: Coded Allergies: No Known Drug Allergy (Verified Allergy, Unknown, 11/04/20) Medications Current Medications Medications Dose Ordered Sig/Lidia Route Start Time Stop Time Status Last Admin Dose Admin Pantoprazole Sodium 40 mg BID IV 06/21/25 22:00 UNV Diagnostic Test (Pha) 1 strip IQ4HR 06/21/25 16:00 UNV Insulin Human Regular IQ4HR SC 06/21/25 16:00 UNV Dextrose 50 ml UD PRN IV 06/21/25 13:30 UNV Sodium Chloride 1,000 ml @ 60 mls/hr [id number] IV 06/21/25 13:30 UNV Acetaminophen/ Hydrocodone Bitart 1 tab Q4HP PRN PO 06/21/25 13:30 UNV Ondansetron HCl 4 mg Q4HP PRN IV 06/21/25 13:30 UNV Docusate Sodium 100 mg BIDPRN PRN PO 06/21/25 13:30 UNV Acetaminophen 650 mg Q6HP PRN PO 06/21/25 13:30 UNV Exam Vital Signs Vital Signs Date Time Temp Pulse Resp B/P (MAP) Pulse Ox O2 Delivery O2 Flow Rate FiO2 06/21/25 12:13 135 20 111/79 (90) 100 06/21/25 10:20 98.4 98.4 General Appearance: Alert, Oriented X3, Cooperative, No acute distress HEENT: Atraumatic, PERRLA, EOMI, Mucous membr. moist/pink Respiratory: Clear to auscultation, Normal air movement Cardiovascular: Regular rate, Normal S1, Normal S2, No murmurs Abdominal: Normal bowel sounds, Soft, No tenderness, No hepatospenomegaly, No m asses Extremities: No clubbing, No cyanosis, No edema, Normal pulses, No tenderness/swelling Skin: No rashes, No breakdown, No significant lesion Neuro: Normal speech, Normal tone, Sensation intact, Cranial nerves 3-12 NL, Reflexes 2+, Other (Weakness) Psych/Mental Status: Mental status NL, Mood NL Labs/Xrays Labs Test 06/21/25 11:15 Range/Units White Blood Count 6.4 4.4-10.8 10^3/uL Red Blood Count 2.25 L 4.5-5.90 10^6/uL Hemoglobin 6.8 *L 13.5-17.5 g/dL Hematocrit 20.7 L 41.0-53.0 % Mean Corpuscular Volume 91.9 80.0-100.0 fL Mean Corpuscular Hemoglobin 30.1 28.0-32.0 pg Mean Corpuscular Hemoglobin Concent 32.7 32.0-36.0 g/dL Red Cell Distribution Width 16.9 H 11.8-14.3 % Platelet Count 137 L 140-450 10^3/uL Mean Platelet Volume 9.6 6.9-10.8 fL Neutrophils (%) (Auto) 83.4 H 37.0-80.0 % Lymphocytes (%) (Auto) 10.6 10.0-50.0 % Monocytes (%) (Auto) 5.7 0.0-12.0 % Eosinophils (%) (Auto) 0.0 0.0-7.0 % Basophils (%) (Auto) 0.3 0.0-2.0 % Neutrophils # (Auto) 5.4 1.6-8.6 10 ^3/uL Lymphocytes # (Auto) 0.7 0.4-5.4 10 ^3/uL Monocytes # (Auto) 0.4 0-1.3 10 ^3/uL Eosinophils # (Auto) 0 0-0.8 10 ^3/uL Basophils # (Auto) 0 0-0.2 10 ^3/uL Nucleated Red Blood Cells 0.0 % Prothrombin Time 14.9 H 9.3-11.8 sec Prothrombin Time INR 1.46 H 0.9-1.15 Activated Partial Thromboplast Time 26.8 24.5-34.5 SEC Sodium Level 139 136-145 mmol/L Potassium Level 3.4 L 3.5-5.1 mmol/L Chloride Level 98 98-107 mmol/L Carbon Dioxide Level 22 20-31 mmol/L Anion Gap 19 H 5-15 Blood Urea Nitrogen 18 9-23 mg/dL Creatinine 0.59 L 0.700-1.30 mg/dL Glomerular Filtration Rate Calc 128 >90 mL/min BUN/Creatinine Ratio 30.5 H 10.0-20.0 Serum Glucose 174 H 74-106 mg/dL Calcium Level 8.0 L 8.7-10.4 mg/dL Total Bilirubin 2.1 H 0.2-1.0 mg/dL Aspartate Amino Transferase (AST) 118 H 13-40 U/L Alanine Aminotransferase (ALT) 49 H 7-40 U/L Alkaline Phosphatase 128 H 46-116 U/L Total Protein 6.2 5.7-8.2 g/dL Albumin 3.1 L 3.2-4.8 g/dL Plasma/Serum Blood Alcohol 8.3 <10 mg/dL PATIENT: ASHA SAPP ACCT: [id number] UNIT: [id number] : 1990 LOC: ER ROOM / BED: / AGE / SEX: 35 / M ADM STATUS: REG ER SERVICE 1040 ORDERING PHYSICIAN: CRESENCIO POTTER MD PROCEDURE(s): ABPL - CT AB PEL WO CON-NO ORAL OR IV REASON: weakness ORDER NUMBER(s): [id number], ACCESSION NUMBER(s): [id number] Indication: weakness Technique: CT axial images of the abdomen and pelvis are obtained without contrast. Coronal and sagittal reformats were obtained. Radiation Dose Information: CTDI volume is 8.1 mGy. Dose-length product is 441 mGy*cm Comparison: CT ABD PELVIS WO CONTRAST on DOS: 11/04/20 FINDINGS: There is limited interpretation of the abdomen and pelvis without administration of intravenous contrast. Lung bases demonstrate no pleural effusion. Adrenal glands, spleen and pancreas unremarkable in shape. Numerous perisplenic varices. Cirrhotic morphology liver. There are innumerable hypodense lesions throughout the hepatic parenchyma highly suspicious for malignancy/metastatic disease. This replaces more than 50% of the hepatic parenchyma. Gallbladder hyperdensity, gallbladder wall thickening. The kidneys demonstrate no hydronephrosis or nephrolithiasis. Gastroesophageal varices. Gastric distention. Small bowel loops normal in caliber. Recanalized umbilical vein. Moderate volume stool throughout the colon. Normal appendix. Bowel wall thickening ascending and transverse colon. Abdominal aortic atherosclerotic disease. Bladder partially distended. No free pelvic fluid. No inguinal lymphadenopathy. IMPRESSION: Limited evaluation without contrast. Cirrhotic morphology liver with extensive hypodense lesions throughout the hepatic parenchyma replacing more than 50% of the hepatic parenchyma. This could be secondary to malignancy/metastatic disease. Recommend oncology consultation and multiphasic MRI abdomen with and without contrast. Gastroesophageal varices. Wall thickening of the ascending and transverse colon which can be secondary to portal hypertension, colitis, inflammatory bowel disease. Gallbladder wall thickening and hyperdensity, possibly sludge. Recommend abdominal ultrasound to further characterize and HIDA scan to exclude cholecystitis. Other findings as described. SEPSIS Sepsis Screen Date sepsis recognized/suspect: Jun 21, 2025 Time Sepsis recognized/suspect: 1023 Recent Procedure: No On Antibiotic Therapy: No Respiratory Rate >20: No Heart Rate >90: Yes Temp<36 C (96.8 F) or >38.3 C: No SBP <90 or MAP <65 mmHG: No New Acute Mental Status Change: No Is the patient on CPAP, BIPAP,: No Physician Orders Urinalysis (06/21/25 10:40) Heplock Iv (06/21/25 10:40) Purification Supervisor (06/21/25 10:40) Blood Pressure (06/21/25 10:40) Pulse Oximetry (06/21/25 10:40) Electrocardigram (06/21/25 10:40) Type And Screen (06/21/25 10:40) Pantoprazole 40mg/50ml Ns Ae (Protonix) (06/21/25 10:45) Ct Ab Pel Wo Con-No Oral Or Iv (06/21/25 10:40) Obtain Consent For: (06/21/25 12:34) Administer Blood Products UD (06/21/25 12:34) Pantoprazole (Protonix) (06/21/25 22:00) * Gi Dvh Botanical Technical Officer (06/21/25 13:21) Glucose Blood (Accu-Chek Comfort Curve T (06/21/25 16:00) Insulin R (Human) (Insulin R) (06/21/25 16:00) Dextrose 50% Syringe (06/21/25:30) Allergies (06/21/25:) Code Status (06/21/25 13:) Sodium Chloride 0.9% (06/21/25 13:30) Oxygen Per Hour (06/21/25 13:21) Hydrocodone-Acet 5/325mg Tab (Humphreys 5/32 (06/21/25 13:30) Ondansetron Hcl (Zofran) (06/21/25 13:30) Docusate Sodium Capsule (Colace Capsule) (06/21/25 13:30) Complete Blood Count (06/22/25 04:00) Comprehensive Metabolic Panel (06/22/25 04:00) Condition: Serious (06/21/25 13:) Acetaminophen Tablet (Tylenol Tablet) (06/21/25 13:30) Bedrest With Bathroom Privileg (06/21/25:) Maintain Bed Rest (06/21/25:) Sequential Compression Device (06/21/25 ) Consistent Carb(Ccho)Diabetes (06/21/25 Lunch) Admit (06/21/25 14:17) Nitroglycerin Sublingual (Ntrostat Subli (06/21/25 14:30) Morphine Sulfate Injection (06/21/25 14:30) Stat Ekg For Chest Pain (06/21/25 14:17) Notify Of Changes From Base (06/21/25 14:17) Apparatus Engineering Technologist For 24 Hours (06/21/25 14:17) Emergency Dysrhythmia Protocol (06/21/25 14:17) Rhythm Strips Once Every Shift (06/21/25 14:17) Oxygen By Nasal Cannula (06/21/25 14:17) Vital Signs Date Time Temp Pulse Resp B/P (MAP) Pulse Ox O2 Delivery O2 Flow Rate FiO2 06/21/25 12:13 135 20 111/79 (90) 100 06/21/25 10:20 98.4 129 18 124/73 99 98.4 Laboratory Tests Test 06/21/25 11:15 White Blood Count 6.4 10^3/uL (4.4-10.8) Medications Medications Dose Ordered Sig/Lidia Route Start Time Stop Time Status Last Admin Dose Admin Pantoprazole Sodium 50 ml @ 10 mls/hr Q5H ONCE IV 06/21/25 10:45 06/21/25 15:44 06/21/25 10:45 10 MLS/HR Sodium Chloride 500 ml @ 500 mls/hr Q1H ONCE IV 06/21/25 10:45 06/21/25 11:44 DC 06/21/25 10:45 500 MLS/HR Assessment/Plan Assessment/Plan Severe anemia Upper GI bleed Elevated liver enzymes Electrolyte imbalance Acute abdominal pain Generalized weakness Plan 1. Admit to telemetry unit 2. Breathing treatment 3. Pain control management 4. Management of fluids and electrolytes 5. Consultation for hospitalist 6. Diagnostic tests abdomen/pelvis CT 7. DVT prophylaxis-on SCDs 8. Repeat labs CBC, CMP in a.m. 9. Continue with current medical management 10. Treatment plan discussed with patient and RN. Patient verbalized understanding. Plan discussed with: Patient, Other (RN) My Orders Orders - VENANCIO HANNAH DNP Procedure Category Date Status Time Pantoprazole PHA 06/21/25 Logged (Protonix) 22:00 * Gi Dvh Botanical Technical Officer CONS 06/21/25 Transmitted 13:21 Glucose Blood PHA 06/21/25 Logged (Accu-Chek Comfort 16:00 Insulin R (Human) PHA 06/21/25 Logged (Insulin R) 16:00 Dextrose 50% Syringe PHA 06/21/25 Logged 13:30 Allergies LAKISHA 06/21/25 In Process 13:21 Code Status CODE 06/21/25 Transmitted 13:21 Sodium Chloride 0.9% PHA 06/21/25 Logged 13:30 Oxygen Per Hour RT 06/21/25 Transmitted 13:21 Hydrocodone-Acet PHA 06/21/25 Logged 5/325mg Tab (Humphreys 13:30 Ondansetron Hcl PHA 06/21/25 Logged (Zofran) 13:30 Docusate Sodium PHA 06/21/25 Logged Capsule (Colace 13:30 Complete Blood Count LAB 06/22/25 Verified 04:00 Comprehensive LAB 06/22/25 Verified Metabolic Panel 04:00 Condition: Serious LAKISHA 06/21/25 In Process 13:21 Acetaminophen Tablet PHA 06/21/25 Logged (Tylenol Tablet) 13:30 Bedrest With Bathroom [facility] 06/21/25 In Process Privileg 13:21 Maintain Bed Rest [facility] 06/21/25 In Process 13:21 Sequential [facility] 06/21/25 In Process Compression Device Consistent DIET 06/21/25 Transmitted Carb(Ccho)Diabetes Lunch Admit ADMIT 06/21/25 Transmitted 14:17 Nitroglycerin [facility] 06/21/25 Transmitted Sublingual (Ntrostat 14:30 Morphine Sulfate PHA 06/21/25 Transmitted Injection 14:30 Stat Ekg For Chest [facility] 06/21/25 In Process Pain 14:17 Notify Md Of Changes [facility] 06/21/25 In Process From Base 14:17 Apparatus Engineering Technologist For [facility] 06/21/25 In Process 24 Hours 14:17 Emergency Dysrhythmia [facility] 06/21/25 In Process Protocol 14:17 Rhythm Strips Once [facility] 06/21/25 In Process Every Shift 14:17 Oxygen By Nasal RT 06/21/25 Transmitted Cannula 14:17 Problem List: (1) Severe anemia (2) Upper GI bleed (3) Elevated liver enzymes (4) Electrolyte imbalance (5) Acute abdominal pain (6) Generalized weakness Date of Service: Jun 21, 2025 Billing Provider: VENANCIO HANNAH DNP Common Visit Codes: [id number] INP/OBS CARE (HIGH) VENANCIO HANNAH DNP Jun 21, 2025 14:19
[2025-06-21] MEDS ORDERED: MORPHINE SULFATE INJ 2 MG/ml SYRG IV PRN (14:30)
[2025-06-21] MEDS ORDERED: NITROGLYCERIN 0.4 MG SL TAB SL PRN (14:30)
[2025-06-21] MEDS: InsuLIN REG 1unit/0.01ml Soln (100units/ml) SC SCH (16:00)
[2025-06-21] MEDS: ACCU-CHEK COMFORT CURVE STRIP VI SCH (16:17)
[2025-06-21] MEDS: ACETAMINOPHEN 325 MG TAB PO PRN (18:25)
[2025-06-21] MEDS ORDERED: LORazepam 2MG/ML-1ML VIAL IV PRN (18:45)
--- NOTE | 2025-06-21 21:02 | DVH ---
INDICATION: Abdominal pain TECHNIQUE: Multiple real-time sonographic images were obtained of the right upper quadrant. COMPARISON: CT ABD PELVIS WO CONTRAST on DOS: 11/04/20 FINDINGS: Liver is enlarged measuring 17.8 cm with surface nodularity and Moderate diffuse fatty infiltration. Small nonspecific hypoechoic nodule in the left lobe measuring 1.1 cm. There is no intrahepatic or extrahepatic ductal dilatation. The common duct measures 0.4 cm. Mobile gallstone at the body of the gallbladder. Mild pericholecystic edema. Borderline gallbladder distention. Sonographic cohen's sign is negative. The right kidney measures 12.0 cm. The right kidney is normal in contour, size, and shape. The echoge nicity is normal. There is no hydronephrosis. The pancreas is not well visualized due to overlying bowel gas. IMPRESSION: Enlarged heterogeneous liver likely representing cirrhosis with moderate hepatic steatosis. Indeterminate tiny liver lesion. Suggest elective/ nonemergent liver protocol MRI for further charac terization. Gallstone with pericholecystic fluid and borderline gallbladder distention. No other findings to sugg est acute cholecystitis at this time. Close clinical follow-up recommended.
[2025-06-21] MEDS: PANTOPRAZOLE 40 MG/10 ML VIAL INJ IV SCH (21:19)
[2025-06-22] MEDS: ONDANSETRON HCL 4 MG/2 ML VIAL IV PRN (00:10)
[2025-06-22 04:39] LABS: Hematocrit 22.5 % (41.0-53.0); Hemoglobin 7.7 g/dL (13.5-17.5); Mean Corpuscular Hemoglobin 29.4 pg (28.0-32.0); Mean Corpuscular Volume 85.6 fL (80.0-100.0); Nucleated Red Blood Cells % 0.0 %
[2025-06-22 04:57] LABS: Alkaline Phosphatase 91 U/L (46-116); Anion Gap 10 (5-15); BUN/Creatinine Ratio 24.1 (10.0-20.0); Blood Urea Nitrogen 14 mg/dL (9-23); Carbon Dioxide 28 mmol/L (20-31); Chloride 100 mmol/L (98-107); Glucose 96 mg/dL (74-106); Sodium 138 mmol/L (136-145)
[2025-06-22 05:04] LABS: Alanine Aminotransferase 47 U/L (7-40); Albumin 2.6 g/dL (3.2-4.8); Bilirubin, Total 1.8 mg/dL (0.2-1.0); Calcium 7.5 mg/dL (8.7-10.4); Potassium 3.3 mmol/L (3.5-5.1); Total Protein 5.3 g/dL (5.7-8.2)
--- NOTE | 2025-06-22 15:13 | DVH ---
Procedure: NM NM HIDA SCAN Exam Date: 06/22/2025 02:22 PM Clinical History: Abdominal pain; Rule out cholecystitis Comparison Study: None Nuclear Medicine Hepatobiliary Scan. Technique: Following the intravenous administration of 6.3 mCi of technetium 99m labeled Choletec multiple plana r abdominal planar images were obtained in anterior projection in 5 minute intervals for45 minutes . Right lateral images were obtained at 45 minutes after injection. Findings: The liver appears grossly normal in size. There is no abnormal persistence of the cardiac or blood po ol activity. There is prompt visualization of the gallbladder and excretion of activity into the smal l bowel. Impression: Unremarkable hepatobiliary study without evidence of acute cholecystitis.
[2025-06-22 17:16] LABS: Urine Protein, UAD Negative (Negative)
[2025-06-22 18:22] VITALS: BP 126/75; PULSE 97; RESP 16; TEMP 98.6; O2SAT 95
[2025-06-22 18:32] VITALS: PULSE 97; RESP 16; O2SAT 95
--- NOTE | 2025-06-22 18:36 | DVHPN2 ---
Subjective 35-year-old male with a known known history of chronic alcoholism who initially presented to the hospital with a black tarry stools and vomiting of blood found to have acute symptomatic anemia requiring 2 units of packed RBC. Patient is currently denies any hematemesis or any black tarry stools. Currently we are waiting for the GI to evaluate the patient. Changes from previous H/P or p: No Changes Eyes: No Pain, No Vision change, No Conjunctivae inflammation, No Eyelid inflammation, No Other, No Redness ENT: No Ear pain, No Ear discharge, No Nose pain, No Nose discharge, No Nose congestion, No Mouth pain, No Mouth swelling, No Throat pain, No Throat swelling, No Other Cardiovascular: No Chest Pain, No Palpitations, No Orthopnea, No Paroxysmal Noc. Dyspnea, No Edema, No Lt Headedness; Other (Syncope) Respiratory: No Cough, No Dry, No Shortness of breath, No SOB with excertion, No Wheezing, No Hemoptysis, No Pleuritic Pain, No Sputum, No Other Gastrointestinal: Nausea, Vomiting; No Abdominal Pain, No Diarrhea, No Constipation, No Melena, No Hematochezia; Other (Hematemesis) Genitourinary: No Dysuria, No Frequency, No Incontinence, No Hematuria, No Retention, No Other Musculoskeletal: No other, No neck pain, No shoulder pain, No arm pain; back pain; No hand pain, No leg pain, No foot pain Skin: No Rash, No Lesions, No Jaundice, No Bruising, No Other Objective Vitals Vital Signs Date Time Temp Pulse Resp B/P (MAP) Pulse Ox O2 Delivery O2 Flow Rate FiO2 06/22/25 17:06 99.5 73 16 99.5 06/22/25 16:50 98/62 (74) 96 06/22/25 07:20 Room Air* 0 21 Intake/Output Intake and Output 06/22/25 07:00 Intake Total 1200 ml Output Total 625 ml Balance 575 ml Intake Oral 0 ml Tube Feeding 0 ml Blood Product 1200 ml Output Urine Total 225 ml Emesis 400 ml Exam HEENT pupils are reactive Neck is supple CV is S1-S2 regular rate and rhythm Respiratory are clear GI positive bowel sound nine Extremity no edema 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 Medications Current Medications Medications Dose Ordered Sig/Lidia Route Start Time Stop Time Status Last Admin Dose Admin Pantoprazole Sodium 40 mg BID IV 06/21/25 22:00 06/22/25 10:07 40 MG Diagnostic Test (Pha) 1 strip IQ4HR 06/21/25 16:00 06/22/25 16:00 1 STRIP Insulin Human Regular IQ4HR SC 06/21/25 16:00 Dextrose 50 ml UD PRN IV 06/21/25 13:30 Sodium Chloride 1,000 ml @ 60 mls/hr [id number] IV 06/21/25 13:30 06/22/25 06:24 60 MLS/HR Acetaminophen/ Hydrocodone Bitart 1 tab Q4HP PRN PO 06/21/25 13:30 Ondansetron HCl 4 mg Q4HP PRN IV 06/21/25 13:30 06/22/25 00:10 4 MG Docusate Sodium 100 mg BIDPRN PRN PO 06/21/25 13:30 Acetaminophen 650 mg Q6HP PRN PO 06/21/25 13:30 06/21/25 18:25 650 MG Nitroglycerin 0.4 mg Q5MINP PRN SL 06/21/25 14:30 Morphine Sulfate 2 mg Q30M PRN IV 06/21/25 14:30 Lorazepam 1 mg Q8HP PRN IV 06/21/25 18:45 Laboratory Results Laboratory Tests 06/22/25 04:00 Chemistry Test 06/22/25 04:00 Albumin 2.6 g/dL (3.2-4.8) L Calcium Level 7.5 mg/dL (8.7-10.4) L Total Protein 5.3 g/dL (5.7-8.2) L LFT Test 06/22/25 04:00 Alanine Aminotransferase (ALT) 47 U/L (7-40) H Alkaline Phosphatase 91 U/L (46-116) Aspartate Amino Transferase (AST) 133 U/L (13-40) H Total Bilirubin 1.8 mg/dL (0.2-1.0) H Urinalysis Test 06/22/25 17:00 Urine Color Yellow (Yellow) Urine Clarity Clear (Clear) Urine pH 6.5 (5.0-9.0) Urine Specific [place] 1.029 (1.001-1.035) Urine Protein Negative (Negative) Urine Ketones Negative (Negative) Urine Blood Negative /uL (Negative) Urine Nitrite Negative (Negative) Urine Bilirubin 1+ (Negative) Urine Urobilinogen Over mg/dL (Negative) Urine Leukocyte Esterase Negative /uL (Negative) Urine RBC <1 /hpf (0 - 3) Urine Microscopic WBC 1 /HPF (0-3) Urine Squamous Epithelial Cells Few /hpf (<5) Urine Bacteria None seen /hpf (None Seen) Urine Glucose Normal mg/dL (Normal) Assessment/Plan Assessment/Plan 35-year-old male with a known history of chronic alcoholism, chronic liver disease, presented to the hospital with a hematemesis as well as black tarry stools found to have 1. Acute symptomatic anemia status post 2 units of packed RBC 2. Black tarry stools rule out upper GI bleed 3. Transaminitis 4. Chronic alcoholism 5. History of chronic liver disease -keep NPO for EGD, continue Protonix. Monitor H&H. Plan discussed with: Patient, Other My Orders Orders - JOSSIE ARVIZU MD Procedure Category Date Status Time Npo After Midnight LAKISHA 06/22/25 In Process 15:48 Npo (Nothing By DIET 06/23/25 Transmitted Mouth) Diet Breakfast Date of Service: Jun 22, 2025 Billing Provider: JOSSIE ARVIZU MD Common Visit Codes: [id number] INP/OBS CARE(HIGH) JOSSIE ARVIZU MD Jun 22, 2025 18:36
[2025-06-22 20:00] VITALS: PULSE 83; PULSE 96; RESP 16; O2SAT 95
[2025-06-22 21:00] VITALS: BP 103/67; PULSE 96; RESP 16; TEMP 98.3; O2SAT 97
[2025-06-22] MEDS ORDERED: LORA-1121 PO (21:38)
[2025-06-22] MEDS ORDERED: FERR325T20 PO (21:38)
[2025-06-22] MEDS ORDERED: AMLO1TAB22 PO (21:38)
[2025-06-23 01:00] VITALS: BP 98/64; PULSE 97; RESP 18; TEMP 98.1; O2SAT 99
[2025-06-23 04:52] VITALS: BP 108/78; PULSE 82; RESP 18; TEMP 98.6; O2SAT 99
[2025-06-23 08:10] VITALS: PULSE 87
[2025-06-23 09:00] VITALS: BP 113/76; PULSE 67; RESP 15; TEMP 98; O2SAT 100
[2025-06-23 12:50] VITALS: BP 144/78; PULSE 72; RESP 16; TEMP 98.2; O2SAT 95
[2025-06-23] MEDS: POTASSIUM EFFERVESENT TAB 25 MEQ PO ONE (15:11)
--- NOTE | 2025-06-23 16:11 | DVHDS2 ---
Discharge Summary Date of Admission Jun 21, 2025 at 14:17 Date of Discharge: Jun 23, 2025 Labs/Diagnostic Data: Laboratory Results Test 06/23/25 11:44 06/22/25 17:00 06/22/25 04:00 06/21/25 11:15 POC Glucose 90 mg/dl (70-106) Urine Color Yellow (Yellow) Urine Clarity Clear (Clear) Urine pH 6.5 (5.0-9.0) Urine Specific [place] 1.029 (1.001-1.035) Urine Protein Negative (Negative) Urine Ketones Negative (Negative) Urine Blood Negative /uL (Negative) Urine Nitrite Negative (Negative) Urine Bilirubin 1+ (Negative) Urine Urobilinogen Over mg/dL (Negative) Urine Leukocyte Esterase Negative /uL (Negative) Urine RBC <1 /hpf (0 - 3) Urine Microscopic WBC 1 /HPF (0-3) Urine Squamous Epithelial Cells Few /hpf (<5) Urine Bacteria None seen /hpf (None Seen) Urine Glucose Normal mg/dL (Normal) White Blood Count 8.3 10^3/uL (4.4-10.8) Red Blood Count 2.63 10^6/uL (4.5-5.90) Hemoglobin 7.7 g/dL (13.5-17.5) Hematocrit 22.5 % (41.0-53.0) Mean Corpuscular Volume 85.6 fL (80.0-100.0) Mean Corpuscular Hemoglobin 29.4 pg (28.0-32.0) Mean Corpuscular Hemoglobin Concent 34.4 g/dL (32.0-36.0) Red Cell Distribution Width 18.5 % (11.8-14.3) Platelet Count 79 10^3/uL (140-450) Mean Platelet Volume 9.2 fL (6.9-10.8) Neutrophils (%) (Auto) 70.3 % (37.0-80.0) Lymphocytes (%) (Auto) 16.6 % (10.0-50.0) Monocytes (%) (Auto) 12.9 % (0.0-12.0) Eosinophils (%) (Auto) 0.0 % (0.0-7.0) Basophils (%) (Auto) 0.2 % (0.0-2.0) Neutrophils # (Auto) 5.8 10 ^3/uL (1.6-8.6) Lymphocytes # (Auto) 1.4 10 ^3/uL (0.4-5.4) Monocytes # (Auto) 1.1 10 ^3/uL (0-1.3) Eosinophils # (Auto) 0 10 ^3/uL (0-0.8) Basophils # (Auto) 0 10 ^3/uL (0-0.2) Nucleated Red Blood Cells 0.0 % Sodium Level 138 mmol/L (136-145) Potassium Level 3.3 mmol/L (3.5-5.1) Chloride Level 100 mmol/L (98-107) Carbon Dioxide Level 28 mmol/L (20-31) Anion Gap 10 (5-15) Blood Urea Nitrogen 14 mg/dL (9-23) Creatinine 0.58 mg/dL (0.700-1.30) Glomerular Filtration Rate Calc 129 mL/min (>90) BUN/Creatinine Ratio 24.1 (10.0-20.0) Serum Glucose 96 mg/dL (74-106) Calcium Level 7.5 mg/dL (8.7-10.4) Total Bilirubin 1.8 mg/dL (0.2-1.0) Aspartate Amino Transferase (AST) 133 U/L (13-40) Alanine Aminotransferase (ALT) 47 U/L (7-40) Alkaline Phosphatase 91 U/L (46-116) Total Protein 5.3 g/dL (5.7-8.2) Albumin 2.6 g/dL (3.2-4.8) Prothrombin Time 14.9 sec (9.3-11.8) Prothrombin Time INR 1.46 (0.9-1.15) Activated Partial Thromboplast Time 26.8 SEC (24.5-34.5) Plasma/Serum Blood Alcohol 8.3 mg/dL (<10) Other Laboratory Tests 06/22/25 04:00 Brief Hx & Hospital Course: 35-year-old male with a known history of chronic alcoholism, chronic liver disease, presented to the hospital with a hematemesis as well as black tarry stools found to have acute symptomatic anemia secondary to suspected upper GI bleed as patient is having hematemesis as well as black tarry stools. Patient has received 2 units of packed RBC. GI was consulted. Patient does have known history of chronic alcoholism. Patient's left against medical advice before completion of workup and treatment. Condition at Discharge: Undetermined Final Diagnosis/Problems List 1. Acute symptomatic anemia status post 2 units of packed RBC 2. Hematemesis and black tarry stools rule out upper GI bleed 3. Chronic alcoholism 4. Transaminitis Discharge Disposition: [facility] Discharge Will this Physician continue t: No Discharge Instruct/Medications Scheduled Amlodipine Besylate (Amlodipine Besylate), 1 TAB PO DAILY, (Reported) Ferrous Sulfate (Ferosul), 1 TAB PO DAILY, (Reported) Scheduled PRN Lorazepam (Ativan Tablet), 1 TAB PO DAILY PRN for ANXIETY, (Reported) Discharge Statement: "Patient was advised to return to the ER or call 911 if any headaches, dizziness, shortness of breath, chest pain, abdominal pain, bleeding, fevers, or worsening of medical condition. Patient was counseled about treatment plan, medications, possible side effects, patientverbalized understanding. All questions were answered to the best of my ability. This discharge took greater then 30 minutes in planning, reviewing documentation, counseling the patient, and discussing with other team members." ASSESSMENT ASSESSMENT Assessment Date of Service: Jun 23, 2025 Billing Provider: JOSSIE ARVIZU MD Common Visit Codes: 99047-PJM/OBS DISCH DAY >30min JOSSIE ARVIZU MD Jun 23, 2025 16:11
== END 2025-06-23 15:15 | disposition left against medical advice (07) | DRG 663 ==
LOC: ER 10:12 → OVERFLOW 14:17 → TELE-WESTW 06-22 18:34
PROVIDERS: ADMIT Internal Medicine; ATTEND Internal Medicine
PROC: 30233N1 Transfusion of Nonautologous Red Blood Cells into Peripheral Vein, Percutaneous Approach (ICD-10-PCS; principal; 2025-06-21)
DX: D62 Acute posthemorrhagic anemia (principal); K92.0 Hematemesis; K29.01 Acute gastritis with bleeding; E11.9 Type 2 diabetes mellitus without complications; F17.210 Nicotine dependence, cigarettes, uncomplicated; F10.20 Alcohol dependence, uncomplicated; R74.01 Elevation of levels of liver transaminase levels; R74.8 Abnormal levels of other serum enzymes; Z53.29 Procedure and treatment not carried out because of patient's decision for other reasons; I10 Essential (primary) hypertension; Y90.9 Presence of alcohol in blood, level not specified; Z82.49 Family history of ischemic heart disease and other diseases of the circulatory system; Z83.3 Family history of diabetes mellitus
CPT/HCPCS: 36415; 36430; 74176; 76705; 78226; 80053; 80320; 81001; 82962; 85025; 85610; 85730; 86850; 86900; 86901; 86920; G0378; J2405; J2470